=== PATIENT | female | born 1975 | race African-American/Black ===

== ENCOUNTER 2018-03-28 15:11 | Emergency (ER) | payer BC, OTHER ==
[~2018-03-28] VITALS: Ht 172.7 cm; Wt 111.1 kg
[2018-03-28] MEDS ORDERED: QVAR7.3 GM INH ×2 (15:23→15:34)
[2018-03-28] MEDS ORDERED: VENTOLIN HFA18 GM INH ×2 (15:23→15:34)
[2018-03-28] MEDS ORDERED: Albuterol/Ipratropium 3ml neb HHN ONE (15:30)
[2018-03-28 15:34] VITALS: BP 105/68
[2018-03-28] MEDS ORDERED: MEDROL DOSEPAK4 MG ORAL (15:34)
[2018-03-28] MEDS ORDERED: OFLOXACIN5 ML OT (15:34)
--- NOTE | 2018-03-28 15:52 | Emergency Room Report ---
History of Present Illness General Chief Complaint: Asthma Source: Patient Present Illness HPI patient is a 42-year-old female with history of asthma currently controlled with Ventolin and Qvar here complaining of increased wheezing and determination of his inhaler. Patient complains of a dry cough denies fever or chills and URI symptoms. She also complains of intermittent pain and left ear without any discharge. Denies SOB, chest pain, palpitation, no other associated symptoms. She admits to applying Q-tip to her left ear on daily basis. Allergies: Coded Allergies: No Known Allergies (Unverified , 03/28/18) Patient History Past Medical History: see triage record Past Surgical History: unable to obtain Pertinent Family History: none Now: No Immunizations: UTD Reviewed Nursing Documentation: PMH: Agreed; PSxH: Agreed Nursing Documentation-PMH Past Medical History: No History, Except For Hx Asthma: Yes Review of Systems All Other Systems: negative except mentioned in HPI Physical Exam Vital Signs Date Time Temp Pulse Resp B/P (MAP) Pulse Ox O2 Delivery O2 Flow Rate FiO2 03/28/18 15:17 98.1 95 18 105/68 93 Room Air Sp02 EP Interpretation: reviewed, normal General Appearance: normal inspection, well appearing, no apparent distress, alert, GCS 15 Head: normocephalic, atraumatic Eyes: bilateral eye normal inspection, bilateral eye PERRL ENT: hearing grossly normal, normal pharynx, no angioedema, normal voice, TMs + canals normal, uvula midline, other - left tragus tender to palpation and erythema of left external ear canal Neck: normal inspection, full range of motion, supple Respiratory: normal inspection, chest non-tender, lungs clear, no rhonchi, wheezing - Left upper lobe Cardiovascular #1: normal inspection, regular rate, rhythm, no edema, no murmur Gastrointestinal: normal inspection, soft Rectal: deferred Genitourinary: deferred Musculoskeletal: normal inspection, back normal Neurologic: normal inspection, alert, oriented x3 Psychiatric: normal inspection, judgement/insight normal, memory normal Medical Decision Making PA Attestation All diagnosis and treatment plans were reviewed and discussed with supervising physician Dr. Perrin Diagnostic Impression: Primary Impression: Asthma Additional Impression: Otitis externa ER Course patient is a 42-year-old female with history of asthma currently controlled with Ventolin and Qvar here complaining of increased wheezing and determination of his inhaler. Patient complains of a dry cough denies fever or chills and URI symptoms. She also complains of intermittent pain and left ear without any discharge. Denies SOB, chest pain, palpitation, no other associated symptoms. She admits to applying Q-tip to her left ear on daily basis. Ddx considered but are not limited to asthma exacerbation, otitis externa Vital signs: are WNL, pt. is afebrile H&PE are most consistent with asthma exacerbation and otitis externa ORDERS: albuterol/iperatrupium . nebulizer treatment, Ventolin HFA, QR 4 day, Medrol Dosepak, ofloxacin otic drops ED INTERVENTIONS: : albuterol/iperatrupium . nebulizer treatment DISCHARGE: At this time pt. is stable for d/c to home. Will provide printed patient care instructions, and any necessary prescriptions. Care plan and follow up instructions have been discussed with the patient prior to discharge. Last Vital Signs Date Time Temp Pulse Resp B/P (MAP) Pulse Ox O2 Delivery O2 Flow Rate FiO2 03/28/18 15:34 98.1 18 105/68 93 Room Air 03/28/18 15:34 90 Disposition: HOME, SELF-CARE Condition: Stable Scripts Ofloxacin (OFLOXACIN) 5 Ml Drops 5 ML OT BID for 7 Days, #70 ML Prov: Pedro Wheeler 03/28/18 Methylprednisolone (Methylprednisolone*) 4MG Dspk 4 MG ORAL DIRECTED for 6 Days, #21 EA 0 Refills Day 1: Two tablets before breakfast, one after lunch, one after dinner, and two at bedtime. If started late in the day, take all six tablets at once or divide into two or three doses, unless otherwise directed by prescriber. Day 2: One tablet before breakfast, one after lunch, one after dinner, and two at bedtime Day 3: One tablet before breakfast, one after lunch, one after dinner, and one at bedtime Day 4: One tablet before breakfast, one after lunch, and one at bedtime Day 5: One tablet before breakfast and one at bedtime Day 6: One tablet before breakfast Prov: Pedro Wheeler 03/28/18 Beclomethasone Dipropionate 40MCG Oral Inh (QVAR 40*) 7.3 Gm Aer.w.adap 1 PUFF INH TWICE A DAY, #18 GM 0 Refills Prov: Pedro Wheeler 03/28/18 Albuterol Sulfate (VENTOLIN HFA) 18 Gm Hfa.aer.ad 2 PUFFS INH EVERY 6 HOURS, #18 GM 0 Refills Prov: Pedro Wheeler 03/28/18 Patient Instructions: Asthma, Adult, Otitis Externa Additional Instructions: follow with primary care provider for further assessment of asthma refill of medication. If shortness of breath return to the emergency room Pedro Wheeler Mar 28, 2018 15:52
[2018-03-28 16:09] VITALS: BP 105/68
== END 2018-03-28 16:09 | disposition home or self-care (01) ==
LOC: EMR 15:50
DX: J45.909 Unspecified asthma, uncomplicated (principal); H66.90 Otitis media, unspecified, unspecified ear
CPT/HCPCS: 94640; 94664; 99284; J7620

== ENCOUNTER 2018-05-07 09:25 | Emergency (ER) | payer OTHER ==
[~2018-05-07] VITALS: Ht 172.7 cm; Wt 108.4 kg
[~2018-05-07 09:25] MED LIST: MEDROL DOSEPAK4 MG ORAL; OFLOXACIN5 ML OT; QVAR7.3 GM INH; VENTOLIN HFA18 GM INH
[2018-05-07 09:28] VITALS: BP 107/73
--- NOTE | 2018-05-07 09:58 | Emergency Room Report ---
History of Present Illness General Chief Complaint: Asthma Source: Patient, Medical Record Present Illness HPI Ms. Kirkland is a 42-year-old female with history of asthma since childhood. She was a former tobacco user. She stopped smoking when she required hospitalization for asthma in August. Since Thursday she's had shortness of breath cough nasal congestion. She uses Qvar daily. She used albuterol nebulizer today. She requests refill of Ventolin inhaler. Denies pain. Denies fever. Allergies: Coded Allergies: No Known Allergies (Unverified , 03/28/18) Patient History Past Medical History: asthma Past Surgical History: Pertinent Family History: other - Mother has emphysema Social History: Denies: smoking - former smoker Last Menstrual Period: 04/20/18 Reviewed Nursing Documentation: PMH: Agreed; PSxH: Agreed Nursing Documentation-PMH Past Medical History: No History, Except For Hx Asthma: Yes Review of Systems Constitutional: Denies: fever, malaise ENT: Reports: nose congestion Respiratory: Reports: cough, wheezing All Other Systems: negative except mentioned in HPI Physical Exam Vital Signs Date Time Temp Pulse Resp B/P (MAP) Pulse Ox O2 Delivery O2 Flow Rate FiO2 05/07/18 09:28 97.3 77 18 107/73 96 Room Air Sp02 EP Interpretation: reviewed, normal General Appearance: no apparent distress, alert, GCS 15, non-toxic Head: normocephalic, atraumatic Eyes: bilateral eye normal inspection ENT: hearing grossly normal, normal pharynx, no angioedema, normal voice Neck: full range of motion, supple, no meningismus, no bony tend, supple/symm/ no masses Respiratory: chest non-tender, lungs clear, normal breath sounds, no rhonchi, no respiratory distress, no retraction, no accessory muscle use, speaking full sentences Cardiovascular #1: normal inspection, normal peripheral pulses, regular rate, rhythm, no edema Cardiovascular #2: 2+ carotid (R), 2+ carotid (L), 2+ radial (R), 2+ radial (L) , 2+ dorsalis pedis (R), 2+ dorsalis pedis (L) Gastrointestinal: normal bowel sounds, non tender, soft, non-distended, no guarding, no rebound Genitourinary: no CVA tenderness Musculoskeletal: back normal, gait/station normal, normal range of motion, non- tender, calf tenderness Neurologic: alert, oriented x3, responsive, motor strength/tone normal, sensory intact, speech normal Psychiatric: judgement/insight normal, memory normal, mood/affect normal, no suicidal/homicidal ideation Skin: normal color, no rash, warm/dry, well hydrated Medical Decision Making Diagnostic Impression: Primary Impression: Asthma Additional Impression: URI (upper respiratory infection) ER Course Mrs. Kirkland has URI with hx of asthma. Normal lung exam. No current work of breathing. She did have frequent cough on exam. Recommended using home prednisone medication. rx: loratadine and albuterol MDI Last Vital Signs Date Time Temp Pulse Resp B/P (MAP) Pulse Ox O2 Delivery O2 Flow Rate FiO2 05/07/18 09:36 77 18 Room Air 05/07/18 09:28 97.3 107/73 96 Disposition: HOME, SELF-CARE Condition: Stable Su Sears MD May 07, 2018 09:58
[2018-05-07] MEDS ORDERED: VENTOLIN HFA18 GM INH (10:01)
[2018-05-07] MEDS ORDERED: LORATADINE10 M1 PO (10:01)
[2018-05-07 10:38] VITALS: BP 110/80
== END 2018-05-07 10:38 | disposition home or self-care (01) ==
LOC: EMR 10:20
DX: J45.909 Unspecified asthma, uncomplicated (principal); J06.9 Acute upper respiratory infection, unspecified
CPT/HCPCS: 99282